=== PATIENT | female | born 1980 | race Caucasian/White ===

== ENCOUNTER 2021-05-28 15:09 | Emergency (ER) | payer OTHER ==
[2021-05-28 15:30] VITALS: BP 129/80; PULSE 74; TEMP 97.6; BMI 27.4
[2021-05-28] MEDS ORDERED: SODIUM CHLORIDE 1,000 ML IV ONE (16:36)
[2021-05-28] MEDS ORDERED: METOCLOPRAMIDE HCL INJECTION 10 MG/2 ML VIAL IVPB STA (16:36)
[2021-05-28] MEDS ORDERED: MECLIZINE HCL 25 MG TABLET (FP) PO ONE (16:38)
[2021-05-28] MEDS ORDERED: METOCLOPRAMIDE HCL INJECTION 10 MG/2 ML VIAL ONE (16:46)
[2021-05-28] MEDS ORDERED: MECLIZINE HCL 25 MG TABLET (FP) ONE (16:46)
[2021-05-28 17:15] LABS: BASO % 0.6 % (0-2.0); EOS % 4.3 % (0-4.5); HEMATOCRIT 40.3 % (32.4-45.2); HEMOGLOBIN 13.9 GM/dL (10.7-15.3); LYMPH % 22.8 % (8-40); MCH 31.5 pg (25.7-33.7); MCHC 34.4 g/dl (32.0-36.0); MEAN CELL VOLUME 91.5 fl (80-96); MONO % 4.8 % (3.8-10.2); NEUT % 67.5 % (42.8-82.8); PLATELET COUNT 165 10^3/uL (134-434); RDW 12.8 % (11.6-15.6); WHITE BLOOD COUNT 7.8 K/mm3 (4.0-10.0)
[2021-05-28 17:36] LABS: CHLORIDE 106 mmol/L (98-107); SODIUM 139 mmol/L (136-145)
[2021-05-28 17:38] LABS: BLOOD UREA NITROGEN 7.2 mg/dL (7-18); CALCIUM 8.6 mg/dL (8.5-10.1)
[2021-05-28 17:39] LABS: ALBUMIN 3.8 g/dl (3.4-5.0); ANION GAP 7 MMOL/L (8-16); CO2 26 mmol/L (21-32); GLUCOSE,RANDOM 121 mg/dL (74-106)
[2021-05-28 17:42] LABS: CREATININE 0.6 mg/dL (0.55-1.3); SGOT/AST 28 U/L (15-37); SGPT/ALT 35 U/L (13-61)
[2021-05-28 17:43] LABS: BILIRUBIN,TOTAL 0.4 mg/dL (0.2-1); TOT PROT 7.6 g/dl (6.4-8.2)
[2021-05-28 17:45] LABS: ALK PHOS 81 U/L (45-117)
[2021-05-28 18:37] LABS: EPI CELLS 26 /uL (0-25.1); HYALINE CASTS 1 /uL (0-3.1); PH,URINE 6.5 (5.0-8.0); URINE APPEARANCE CLEAR; URINE BACTERIA 566 /uL (0-1359); URINE BILIRUBIN NEGATIVE (NEGATIVE); URINE COLOR YELLOW; URINE GLUCOSE (UA) NEGATIVE (NEGATIVE); URINE KETONE NEGATIVE (NEGATIVE); URINE LEUK ESTERASE TRACE (NEGATIVE); URINE NITRITE NEGATIVE (NEGATIVE); URINE PROTEIN NEGATIVE (NEGATIVE); URINE RBC 18 /uL (0-23.9); URINE UROBILINOGEN 0.2 mg/dL (0.2-1.0); URINE WBC 23 /uL (0-25.8)
[2021-05-28 18:38] LABS: HCG,QUALITATIVE URINE Negative
== END 2021-05-28 19:12 | disposition home or self-care (01) ==
LOC: JER 15:09
PROC: 3E033GC Introduction of Other Therapeutic Substance into Peripheral Vein, Percutaneous Approach (ICD-10-PCS; principal; 2021-05-28)
PROC: 3E0337Z Introduction of Electrolytic and Water Balance Substance into Peripheral Vein, Percutaneous Approach (ICD-10-PCS; 2021-05-28)
DX: R42 Dizziness and giddiness (principal); R11.0 Nausea
CPT/HCPCS: 36415; 80053; 81003; 82550; 84484; 84703; 85025; 87086; 99284-25